=== PATIENT | female | born 1990 | race African-American/Black ===

== ENCOUNTER 2023-12-22 13:32 | Emergency (ER) | payer OTHER ==
[~2023-12-22] VITALS: Ht 162.6 cm; Wt 59.0 kg
[2023-12-22 13:45] VITALS: BP 101/59; TEMP 98.4
[2023-12-22 14:48] VITALS: O2SAT 96
== END 2023-12-22 14:47 | disposition home or self-care (01) ==
LOC: ER 13:32
DX: K12.1 Other forms of stomatitis (principal)